=== PATIENT | female | born 1995 | race Caucasian/White ===

== ENCOUNTER 2021-01-24 12:01 | Emergency (ER) | payer SELFPAY ==
[2021-01-24 12:01] VITALS: BP 137/80; PULSE 88; RESP 16; TEMP 36.8; O2SAT 97; BMI 43.2
--- NOTE | 2021-01-24 12:02 | [facility].EDGENADL ---
ED Disposition Clinical Impression: Laceration of left hand Qualifiers: Encounter type: initial encounter Foreign body presence: without foreign body Qualified Code(s): S61.412A - Laceration without foreign body of left hand, initial encounter Disposition: Home, Self-Care Condition on Discharge: Good Instructions: DI for Laceration Repair -- Simple, DI for Laceration Repair -- Finger Additional Instructions: You have been evaluated for a laceration to your left hand. Please keep area clean, dry, intact. Have sutures removed in 5 to 7 days. Follow-up with your primary care doctor for wound check. Return to the emergency department for any new or worsening pain, redness, drainage, other concerns. Time of Disposition: 12:07 - Critical Care Critical Care Time: No Attestation: On , the high probability of a clinically significant, sudden or life threatening deterioration of the following system(s) required my full and direct attention, intervention and personal management. The time I documented below is in addition to time spent performing reported procedures but includes the following listed in this critical care notation. Medical Decision Making - Medical Records Medical records reviewed: Yes: I reviewed the patient's medical records. - Juan A Inquiry Pt receiving controlled substance: No Vital Signs: 01/24/21 12:01 Temperature 98.3 F Temperature Source Oral Pulse Rate [Right] 88 Respiratory Rate 16 Blood Pressure [Right Arm] 137/80 Blood Pressure Mean [Right Arm] 99 Blood Pressure Source [Right Arm] Automatic Cuff Blood Pressure Position [Right Arm] Sitting 02 Sat by Pulse Oximetry 97 Oxygen Delivery Method Room Air Orders (Tests/Meds): ED MEDICATIONS Discontinued Medications Generic Name Dose Route Start Last Admin Trade Name Freq PRN Reason Stop Dose Admin Lidocaine HCl 5 ml 01/24/21 12:02 Lidocaine 1% 10ml Mdv SQ 01/24/21 12:03 ONCE ONE Medical Decision Narrative: In summary this is a 25-year-old female, [id number], presenting to the emergency department with a laceration to her left hand. Clinically stable on arrival. Vital signs within normal limits. The injury is in the webspace between the thumb and index finger. In a relatively safe area, away from neurovascular structures. She has full range of motion of the thumb and index finger. Sensation intact. Laceration anesthetized. Copiously irrigated. Repaired with sutures. Well-tolerated. Patient instructed to follow-up with her PCP for suture removal in 5 to 7 days. Given return precautions. Stable for discharge. General Adult HPI - General Stated complaint: laceration Time Seen by Provider: 01/24/21 12:02 Mode of Arrival: Ambulatory Source of Information: Patient Limitations: No Limitations - History of Present Illness HPI narrative: 25-year-old female presenting to the emergency department with a laceration to her left hand. She was working with a knife just prior to arrival. Went to use it and stabbed herself in the webspace of her left hand between her thumb and index finger. She had immediate pain, bleeding. Bleeding controlled on arrival. She has pain with moving her thumb. But no decreased range of motion. No numbness or tingling in her thumb. Most recent tetanus was in the last 2 years. - Related Data Allergies Allergy/AdvReac Type Severity Reaction Status Date / Time No Known Allergies Allergy Verified 01/24/21 12:20 [facility] History - Hepatitis A Screen Attestation statement:: This patient has been screened for Hepatitis A risk factors. ROS Obtained: Yes All systems reviewed & no additional complaints - Constitutional Constitutional: Denies chills, Denies fever(s) - Cardiovascular Cardiovascular: Denies chest pain, Denies palpitations - Respiratory Respiratory: Denies cough, Denies dyspnea - Gastrointestinal Gastrointestingal: Denies: nausea, vomiting - Musc
[2021-01-24 12:47] VITALS: BP 145/105
[2021-01-24 12:50] VITALS: BP 136/73; PULSE 91; RESP 18; TEMP 36.8; O2SAT 100
== END 2021-01-24 13:00 | disposition home or self-care (01) ==
PROVIDERS: Emergency Provider Emergency Medicine
DX: S61.412A Laceration without foreign body of left hand, initial encounter (principal); W26.0XXA Contact with knife, initial encounter; Y92.69 Other specified industrial and construction area as the place of occurrence of the external cause; Y99.0 Civilian activity done for income or pay
CPT/HCPCS: 12002; 99282

== ENCOUNTER 2021-01-31 12:28 | Emergency (ER) | payer SELFPAY ==
[2021-01-31 12:35] VITALS: BP 141/84; PULSE 76; RESP 18; TEMP 37; O2SAT 98; BMI 43.2
[2021-01-31 12:43] VITALS: BP 141/84; PULSE 76; RESP 18; TEMP 37; O2SAT 98
== END 2021-01-31 12:44 | disposition home or self-care (01) ==
PROVIDERS: Emergency Provider Nurse Practitioner Family
DX: S61.412D Laceration without foreign body of left hand, subsequent encounter (principal)